=== PATIENT | male | born 1985 | race Caucasian/White ===

== ENCOUNTER 2018-11-19 11:33 | Outpatient (CLI) | payer MEDICARE, MEDICAID, SELFPAY ==
--- NOTE | 2018-11-19 11:24 | DI.RAD_ITS ---
SYMPTOM/DIAGNOSIS: S/P SURGERY RIGHT HAND: Three views were obtained. There is mildly comminuted, mildly displaced fracture of the head of the second metacarpal. Deformity of the head of the first metacarpal is also noted which is probably old. Deformity of fifth metacarpal, probably old, also noted.
== END 2018-11-19 11:53 ==
PROVIDERS: PCP Nurse Practitioner; Referring Provider Nurse Practitioner; Visit Provider Orthopaedic Surgery
DX: M79.641 Pain in right hand (principal); S62.310A Displaced fracture of base of second metacarpal bone, right hand, initial encounter for closed fracture; Z87.81 Personal history of (healed) traumatic fracture; M21.941 Unspecified acquired deformity of hand, right hand; W22.8XXA Striking against or struck by other objects, initial encounter
CPT/HCPCS: 99203; 99214; 73130

== ENCOUNTER 2019-09-29 18:31 | Observation (INO) | payer MEDICARE, MEDICAID, SELFPAY ==
[2019-09-29 18:49] VITALS: BP 149/104; PULSE 117; RESP 16; TEMP 36.7; O2SAT 97
--- NOTE | 2019-09-29 18:56 | ED.GENADUL_ITS ---
Discharge Plan Disposition Patient Disposition: [facility] INPATIENT Condition: Stable Discharge Details Chief Complaint: PsychEval Clinical Impression: Suicidal ideation, Narcotic abuse Admit Date/Time: 09/30/19 00:06 Admit Provider: Bob Roberto Attending Provider: Bob Roberto Primary Care Provider: Elder Castanon ED Provider: Sabino Patel Discharge Data Discharge Date/Time-TO BE ENTERED AT DEPARTURE: 09/30/19 00:35 Medical Decision Making <Parisa Alston DO - Last Filed: 09/29/19 20:04> 1855 -- 34-year-old male with a history of anxiety, depression, bipolar disorder, previous suicide attempts presents for suicidal ideation with a plan to jump in front of a semitruck or overdose on his medications today. Patient appears in no acute distress. His heart rate is tachycardic. He appears nontoxic. No acute findings on exam. Screening labs ordered. Mental health examined at bedside and agree that patient likely would benefit from inpatient psychiatric hospitalization. Patient is voluntary. Plan is to reach out to local facilities for transfer. As availability of admitted beds are low, will hold in the ED until awaiting further information from mental health. 1999 -- Case endorsed to Dr. Patel to follow-up with mental health. If no inpatient psychiatric beds available tonight, and beds on the floor here continue to remain tight, will hold in the ED awaiting psychiatric placement. <Sabino Patel MD - Last Filed: 09/30/19 00:41> Patient signed out to me. He is here for voluntary psychiatric admission. He should be going to [place] tomorrow. COVID swab has been obtained. Labs are unremarkable. Patient has been cooperative here. Case discussed with hospitalist. [facility]. Patient accepted for psychiatric hold pending placement [place] tomorrow. Lab Data Lab results reviewed: Yes I reviewed the patient's lab results. HPI <DO Yuly Fitzpatrick Last Filed: 09/29/19 20:04> General Mode of arrival: ambulatory . Date/Time Provider Initiated Documentation: 09/29/19 18:51 . Limitations to Documentation: no limitations . Information obtained by: patient . HPI Narrative: Patient is a 34-year-old male with a history of anxiety, depression, Dygmc-Jetieyjhv-Ezizi treated with ablation, previous suicide attempts who presents for suicidal thoughts and concern for impulsive behavior today. He states he has thoughts of overdosing on his medications or jumping in front of a semitruck. His previous attempts including overdose of his medications and suicide by gyroscope technician. Patient states he stopped taking all of his medications including buspirone, Lexapro and melatonin a few months ago. He states he is still taking his Suboxone. He has been on Suboxone for the past 3 years due to a previous history of narcotic abuse. He states his Suboxone dose was recently increased 3 weeks ago. He denies any acute medical complaint such as fever, cough, chest pain, shortness of breath, abdominal pain. He states he has been eating and sleeping normally. He also st ates he has been snorting and smoking heroin almost daily, last used 2 days ago. He also states he has been drinking occasionally, last use 1 week ago. He denies any auditory or visual hallucinations. He denies any homicidal ideation. Related Data Home Medications Medication Instructions Recorded Confirmed albuterol sulfate [ProAir HFA] 2 puff INHALATION Q4H PRN 12/28/15 09/29/19 buprenorphine-naloxone [Suboxone] 12 mg PO DAILY AM 05/28/17 09/29/19 buspirone 10 mg PO BID 05/28/17 09/29/19 melatonin [Melatin] 3 mg PO HS 05/28/17 09/29/19 Fluticasone/Salmeterol [Advair 1 ea INHALATION BID 05/29/17 09/29/19 250-50 Diskus] acetaminophen [Tylenol] 650 mg PO Q4H PRN PRN tab 05/29/17 09/29/19 ibuprofen 400 mg PO Q6H PRN #60 tab 05/29/17 09/29/19 escitalopram oxalate [Lexapro] mg 09/29/19 Previous Rx's Medication Instructions Recorded acetaminophen [Tylenol] 650 mg PO Q4H PRN PRN tab 05/29/17 ibuprofen 400 mg PO Q6H PRN #60 tab 05/29/17 Allergies Allergy/AdvReac Type Severity Reaction Status Date / Time avocado Allergy Severe Unverified 10/31/17 13:54 General Stated Complaint: PsychEval LAURA: 3 Review of Systems <Parisa Alston DO - Last Filed: 09/29/19 20:04> All systems reviewed & are unremarkable except as noted in HPI and below Constitutional Constitutional: Reports as per HPI, Denies chills and Denies fever(s) Eyes Eyes: Denies blurry vision ENT Ears, Nose, Mouth, and Throat: Denies dizziness, Denies sore throat and Denies throat swelling Cardiovascular Cardiovascular: Denies chest pain and Denies dyspnea Respiratory Respiratory: Denies cough and Denies dyspnea Gastrointestinal Gastrointestinal: Denies abdominal pain, Denies diarrhea and Denies vomiting Genitourinary Genitourinary: Denies hematuria and Denies dysuria Musculoskeletal Musculoskeletal: Denies back pain and Denies numbness Integumentary/Breasts Skin/Breast: Denies lesions and Denies rash Neurologic Neurologic: Denies dizziness, Denies localized weakness and Denies numbness Psychiatric Psychiatric: Reports suicidal ideation Allergic/Immunologic Allergic/Immunologic: Denies throat swelling PFSH <Parisa Alston DO - Last Filed: 09/29/19 20:04> Medical History Anxiety (Chronic) Bipolar affective disorder (Acute) Depression (Chronic) Omgxp-Gidolspnj-Otjup (WPW) pattern (Acute) Surgical History (Updated 09/29/19 @ 19:56 by Parisa Alston DO) History of cardiac radiofrequency ablation (Acute) Social History Smoking/Tobacco Use Status: Current, status unknown Tobacco Type: cigarettes Drug use: Never Substance use type: amphetamines, opiates and methamphetamine Do you feel safe in your relationship?: Yes Exam <Parisa Alston DO - Last Filed: 09/29/19 20:04> Const General: cooperative, healthy appearing and no acute distress [facility] Head: normal to inspection Face and sinus: normal facial exam Eyes General: appearance normal, both eyes and all related structures Pupils: PERRL EOM: EOM intact bilaterally Neck Neck: normal visual inspection and No submandibular swelling Lymphatic: no lymphadenopathy noted Chest Chest: normal inspection of the chest and no tenderness Resp Effort & Inspection: normal respiratory effort and able to speak in complete sentences Auscultation: clear to auscultation bilaterally Cardio Rate: regular rate Rhythm: regular rhythm GI Inspection: normal to inspection Palpation: soft, not firm, not rigid and nontender Auscultation: normal bowel sounds Skin General skin exam: no rashes or lesions noted Neuro General: patient alert, patient awake and patient oriented x3 Cognition: normal cognition Speech: speech normal Motor: muscle tone normal throughout Sensory Exam: no sensory deficits noted Extrem General: normal to inspection, full ROM, capillary refill normal, no calf tenderness bilaterally and no edema Psych Appearance: grossly normal Mental Status: mental status grossly normal Speech and Movement: speech and movement normal Affect: normal affect Course <Parisa Alston DO - Last Filed: 09/29/19 20:04> Vital Signs Vital signs: Vital Signs Temperature 98.1 F 09/29/19 18:49 Pulse 117 H 09/29/19 18:49 Respiratory Rate 16 09/29/19 18:49 Blood Pressure 149/104 H 09/29/19 18:49 Pulse Oximetry 87 L 09/29/19 18:49 Temperature 98.1 F 09/29/19 18:49 Temperature Source Tympanic 09/29/19 18:49 Pulse 117 H 09/29/19 18:49 Respiratory Rate 16 09/29/19 18:49 Blood Pressure 149/104 H 09/29/19 18:49 Pulse Oximetry 87 L 09/29/19 18:49 Oxygen Delivery Method Room Air 09/29/19 18:49 Oxygen Flow Rate 0 09/29/19 18:49 Pain Level 0 09/29/19 18:49 Sign Out <Parisa Alston DO - Last Filed: 09/29/19 20:04> Sign Out Data: Sign Out Comment: Follow-up with mental health regarding placement. If no psychiatric beds available tonight and admitted beds on the floor unavailable, will plan to keep in the ED overnight awaiting psychiatric bed placement. Last updated by Parisa Alston DO at 09/29/19 20:07
--- NOTE | 2019-09-29 19:22 | PDOC.CMSAFED ---
- If Service Date Differs Date of service: 09/29/19 Time of Service: 19:23 Care Management Safety Plan Chief complaint: Arthur is a 34 year old male who resides in [place] with his mother. A review of his medical records disclose a diagnosis of bipolar disorder and a history of substance use. Arthur has struggled with depression and intermittent suicidal ideation for many years and records show he has had multiple psychiatric hospitalizations over the years. Today, Arthur spoke with his PCP on the telephone and reported suicidal thoughts with a plan of jumping under a semi-truck. [facility], and a deputy county counsel subsequently responded to Arthur's home and transported him to the [facility] ED for a mental health evaluation. A conversation with Jael, [facility] screener, reveals Arthur had been clean and sober for a period of time. After having an argument with his mom's boyfriend recently, Arthur relapsed and returned to using Fentanyl. A few days ago, he stopped using the Fentanyl, began experiencing withdrawals, and started Suboxone. The argument with his family member, coupled with a relapse resulted in suicidal ideation. [facility] for a [facility], and [facility] for review. VOLUNTARY FOR INPATIENT PSYCHIATRIC STABILIZATION. Patient is appropriate in all interactions since arriving at [facility]. Patient has demonstrated appropriate coping and communication skills, has articulated his needs and concerns, and is fully engaged during staff interactions. Safety plan has been established with patient and care team to adhere to patient goals, identify restrictions based on behavioral status, address nutrition, and determine allowed personal belongings, tools for hygiene and personal care, determine level of activity, including ambulation, level of supervision, visitors, and determine privileges based on behaviors and level of engagement by patient. SAFETY PLAN: 1. Will remain on suicide precautions and in paper clothes. 2. Will remain in room under direct supervision of one-on-one staff at all times provided by [employer], MANUELA, SPLITTER HAND verifying machine operator. 3. May have paper cups, plates, finger foods, as well as a cardboard spoon with which to eat meals. 4. Follow [facility] Management of the Admitted Behavioral Health Patient policy. 5. Comfort bath system only. 6. No personal belongings. 7. No visitors. 8. Activities: None at this time. If patient is moved to Med/Surg, will be allowed soft tip markers, paper, television, and other activities at nursing discretion. 8. No telephone privileges at this time. 9. Due to VOLUNTARY status, if patient wishes to leave [facility], the [facility] bead worker sewing must be contacted to re-evaluate patient prior to patient exiting the building. Patient is currently voluntarily at [facility] and seeking inpatient admission when a bed becomes available. [facility] Frontline Crown Assembly Machine Set Up Mechanic will continue seeking placement. Please contact the Senior Radiation Protection Technician Education Assistant ([phone]) for any needed changes in the Safety Plan. Safety Plan has been provided to interdepartmental care team.
[2019-09-29 19:36] LABS: Abs Immature Grans 0.03 k/cumm (0.0-0.09); Absolute Basophil Count 0.02 k/cumm (0.0-0.2); Absolute Eosinophil Count 0.02 k/cumm (0.0-0.7); Absolute Lymphocyte Count 3.12 k/cumm (1.2-3.4); Absolute Monocyte Count 0.73 k/cumm (0.11-0.7); Absolute Neutrophil Count 8.25 k/cumm (1.2-6.7); Basophils % 0.2; Eosinophils % 0.2; HCT 46.6 % (40.0-50.0); HGB 16.2 g/dL (13.5-17.5); Immature Grans % 0.2 %; Lymphocytes % 25.6; Mean Corp. HGB Concentration 34.8 g/dL (32.0-36.0); Mean Corpuscular Hemoglobin 30.5 pg (27.0-33.0); Mean Corpuscular Volume 87.8 fL (80-95); Mean Platelet Volume 9.8 fL (8.0-11.0); Neutrophils % 67.8; Platelet Count 357 x1000/uL (130-400); RBC 5.31 m/cumm (4.50-6.00); RBC Distribution Width 11.9 % (11.8-14.1); White Blood Cell Count 12.17 k/cumm (4.4-10.8)
[2019-09-29 19:41] LABS: *AMPHETAMINES SCREEN URINE Negative (Negative); *BARBITURATES SCREEN URINE Negative (Negative); *BENZODIAZEPINES SCREEN URINE Negative (Negative); Cannabinoids THC Negative (Negative); Cocaine Screen,Urine Negative (Negative); METHADONE URINE SCREEN Negative (Negative); OPIATES URINE SCREEN Negative (Negative)
[2019-09-29 19:42] LABS: Tricyclic Antidepressants Negative (Negative)
[2019-09-29 19:50] LABS: ALT 37 U/L (16-63); AST 20 U/L (15-37); Albumin 4.2 g/dL (3.4-5.0); Alkaline Phosphatase 91 U/L (46-116); Anion Gap 8.2 mmol/L (3-11); BUN 8 mg/dL (7-18); Bilirubin, Total 0.4 mg/dL (0.2-1.0); CO2 26.8 mmol/L (21.0-32.0); CREATININE 0.94 mg/dL (0.70-1.30); Calcium 9.3 mg/dL (8.5-10.1); Chloride 105 mmol/L (98-107); Glucose 103 mg/dL (74-106); Potassium 3.6 mmol/L (3.5-5.1); Sodium 140 mmol/L (136-145); Total Protein 7.8 g/dL (6.4-8.2)
--- NOTE | 2019-09-29 20:01 | PDOC.MHCN ---
<Jael Edgra - Last Filed: 09/29/19 20:36> Date of service: 09/29/19 Time of Service: 20:01 Mental Health Crisis Note <Jael Edgar - Last Filed: 09/29/19 20:36> Presenting Issue How did you arrive at the ED and why did you come: Client reported calling his primary care provider reporting SI. The primary care provider in turn called the police who picked client up and brought him to ED. Precipitating Factors Client reports SI for over a week. Client reports that he has been using fentanyl again after stopping for a while. He stopped using fentanyl the other day and began to have withdrawals and began suboxone again. Client reported that he has a plan to jump under a semi truck if he leaves the hospital. Client has a history of suicide attempts, overdose numerous times and suicide by police. Client reports numerous hospitalizations in the past. Disposition BEHAVIOR: Clients behavior was unremarkable, but did continuously fidgit with his hair EYE CONTACT: normal eye contact MOOD: client appeared anxious AFFECT: Normal affect APPETITE: reported a normal appetite SLEEP(trouble falling/staying asleep: No problems reported Plan This clinician has called all hospitals for admission with some potential availability. All necessary paperwork will be faxed. The attending physician Dr. Alston is in agreement that this client requires a higher level of care due to SI and plan. This clinician spoke with care management about the plan.
[2019-09-29 20:25] LABS: ETHANOL BLOOD < 3.0 mg/dL (<3)
[2019-09-29] MEDS: Nicotine 21 MG/24 HR PATCH TD (21:01)
[2019-09-29] MEDS: diphenhydrAMINE 25 MG CAP PO (21:01)
--- NOTE | 2019-09-29 23:59 | W.PM.HP.N ---
Date of service: 09/29/19 Time of Service: 23:59 Assessment and Plan Assessment and plan (1) Suicidal ideation: Status: Acute Assessment and plan: Suicidal ideation. Await transfer to facility. Precautions pending transfer. No specific treatment at present. Otherwise will continue his usual suboxone. History of Present Illness History of Present Illness Chief Complaint: suicidal Narrative: 34 male with h/o multiple psychiatric dxx, prior suicide attempts, here with suicidal ideation. Does not specify any precipitant, but notable off meds x months. Medically cleared, agrees to admission pending bed [facility]. Review of Systems All systems reviewed & are unremarkable except as noted in HPI and below PFSH Medical History Anxiety (Chronic) Bipolar affective disorder (Acute) Depression (Chronic) Oaldz-Hbajxkrap-Gzhlh (WPW) pattern (Acute) Surgical History (Updated 09/29/19 @ 19:56 by Parisa Alston DO) History of cardiac radiofrequency ablation (Acute) Social History Smoking/Tobacco Use Status: Current, status unknown Tobacco Type: cigarettes Drug use: Never Substance use type: amphetamines, opiates and methamphetamine Do you feel safe in your relationship?: Yes Meds Home Medications and Allergies Home Medications Medication Instructions Recorded Confirmed Type albuterol sulfate [ProAir HFA] 2 puff INHALATION Q4H PRN 12/28/15 09/29/19 History buprenorphine-naloxone [Suboxone] 12 mg PO DAILY AM 05/28/17 09/29/19 History buspirone 10 mg PO BID 05/28/17 09/29/19 History melatonin [Melatin] 3 mg PO HS 05/28/17 09/29/19 History Fluticasone/Salmeterol [Advair 1 ea INHALATION BID 05/29/17 09/29/19 History 250-50 Diskus] acetaminophen [Tylenol] 650 mg PO Q4H PRN PRN tab 05/29/17 09/29/19 Rx ibuprofen 400 mg PO Q6H PRN #60 tab 05/29/17 09/29/19 Rx escitalopram oxalate [Lexapro] mg 09/29/19 History Allergies Allergy/AdvReac Type Severity Reaction Status Date / Time avocado Allergy Severe Unverified 10/31/17 13:54 Exam Narrative Exam Narrative: 149/104, 117, 16, 36.7, 97% RA. Resting quietly. HRERENT atyraumatic, pupils 5 mm; neck supple; lungs clear; heart tachy/regular; abdomen soft and N; extremities w/o edema; neuro pleasant, ox3, non-focal Results Labs Result diagrams: 09/29/19 19:30 09/29/19 19:30 Labs: Laboratory Results - last 24 hr 09/29/19 09/29/19 09/29/19 18:40 19:30 19:30 WBC 12.17 H RBC 5.31 Hgb 16.2 Hct 46.6 MCV 87.8 MCH 30.5 MCHC 34.8 RDW 11.9 Plt Count 357 MPV 9.8 Immature Gran % 0.2 Neutrophils % 67.8 Lymphocytes % 25.6 Monocytes % 6.0 Eosinophils % 0.2 Basophils % 0.2 Absolute Neutrophils 8.25 H Absolute Lymphocytes 3.12 Absolute Monocytes 0.73 H Absolute Eosinophils 0.02 Absolute Basophils 0.02 Sodium 140 Potassium 3.6 Chloride 105 Carbon Dioxide 26.8 Anion Gap 8.2 BUN 8 Creatinine 0.94 Estimated GFR/1.73 m2 >= 60.00 Glucose 103 Calcium 9.3 Total Bilirubin 0.4 AST 20 ALT 37 Alkaline Phosphatase 91 Total Protein 7.8 Albumin 4.2 Urine Opiates Screen Negative Urine Methadone Screen Negative Ur Barbiturates Screen Negative Ur Tricyclics Screen Negative Ur Amphetamines Screen Negative U Benzodiazepines Scrn Negative Urine Cocaine Screen Negative Ur THC Screen Negative Ethyl Alcohol < 3.0 Last Vital Signs Temp 36.7 C 09/29/19 18:49 Pulse 117 H 09/29/19 18:49 Resp 16 09/29/19 18:49 BP 149/104 H 09/29/19 18:49 Pulse Ox 97 09/29/19 18:49 COVID-19 Screening In the past 14 days, have you traveled outside of [place] or [place]?: NO Had IN PERSON contact w/suspected or confirmed C-19 person: No
[2019-09-30 00:31] VITALS: BP 125/83; PULSE 80; RESP 16; TEMP 36.4; O2SAT 98
[2019-09-30 07:31] VITALS: BP 121/83; PULSE 69; RESP 15; TEMP 36.1; O2SAT 99
[2019-09-30] MEDS: Buprenorphine/Naloxone 12 mg/3 mg FILM 1 EACH SL (08:45)
[2019-09-30] MEDS: diazePAM 5 MG TAB PO (10:25)
--- NOTE | 2019-09-30 10:35 | NUR.NOTE ---
Nursing Note: [facility] called requesting the labs, ED MD note, H&P be faxed to their facility. This was done and attention to Bernie. Shaila Puga.
[2019-09-30 12:52] LABS: COVID-19 RT-PCR UVMMC Result Negative (Negative)
--- NOTE | 2019-09-30 14:02 | DSE_ITS ---
Date of service: 09/30/19 Time of Service: 14:02 DS: Diagnosis Discharge Diagnosis (1) Suicidal ideation: Status: Acute Discharge Plan Disposition Patient Disposition: [facility] Condition: Stable Discharge Details Chief Complaint: PsychEval Clinical Impression: Suicidal ideation, Narcotic abuse Reason For Visit: SUICIDAL Admit Date/Time: 09/30/19 00:06 Admit Provider: Bob Roberto Attending Provider: Bob Roberto Primary Care Provider: Elder Castanon ED Provider: Sabino Patel [facility] Course Hospital Course: This is a 34-year-old male with a history of anxiety, depression, Sytcu-Rjklrjwma-Mqexp treated with ablation, previous suicide attempts who presented to the ED for suicidal thoughts and concern for impulsive behavior. He reported he had thoughts of overdosing on his medications or jumping in front of a semitruck. His previous attempts including overdose of his medications and suicide by news copy editor. Patient states he stopped taking all of his medications including buspirone, Lexapro and melatonin a few months ago. He states he is still taking his Suboxone. He has been on Suboxone for the past 3 years due to a previous history of narcotic abuse. He states his Suboxone dose was recently increased 3 weeks ago. He denies any acute medical complaint such as fever, cough, chest pain, shortness of breath, abdominal pain. He states he has been eating and sleeping normally. Medically he was cleared and bed was obtained at [facility] but transfer pending covid testing so was referred here for observation while awaiting results. He also admits he has been snorting and smoking heroin almost daily, last used 2 days ago. He also states he has been drinking occasionally, last use 1 week ago. He denies any auditory or visual hallucinations. He denies any homicidal ideation. overnight he rested comfortably, no behavioral issues. His covid returned as negative. He will be transported by [facility]. case and discharge plan discussed with Dr Morel who is in agreement. Home Meds and New Rx's Prescriptions: Continued albuterol sulfate [ProAir HFA] 200 PUFF HFA aerosol inhaler 2 puff Inhalation Q4H PRNRF: 0 buspirone 5 MG tablet 10 mg PO BID RF: 0 melatonin [Melatin] 3 MG tablet 3 mg PO HS RF: 0 buprenorphine-naloxone [Suboxone] 1 EACH film 12 mg PO DAILY AM RF: 0 Fluticasone/Salmeterol [Advair 250-50 Diskus] 1 EACH Blst.W.Dev 1 ea Inhalation BID RF: 0 acetaminophen [Tylenol] 325 MG tablet 650 mg PO Q4H PRN PRNRF: 0 ibuprofen 200 MG tablet 400 mg PO Q6H PRN (Reason: pain) Qty: 60 RF: 0 escitalopram oxalate [Lexapro] 10 mg Tablet RF: 0 Discharge Instructions Instructions: Polysubstance Abuse (ED), Suicide Prevention (DC) Referrals: Elder Castanon [Primary Care Provider] - (on discharge from inpatient psychiatric facility) Activity:: Activity as Tolerated Equipment/Supplies:: Blood Glucose Monitor Diet:: As Tolerated Discharge Orders Discharge Orders: Discharge Order (Routine); Ordered 09/30/19 Ordered By: Dolly Fregoso DS: Summary Status at Discharge Functional status at discharge: independent ambulation Overall status at discharge: patient is progressing back to baseline Mental Status: mental status grossly normal Speech and Movement: speech and movement normal Mood: congruent mood Affect: normal affect Exam Const General: cooperative, healthy appearing, comfortable, no acute distress and well developed Nutritional Appearance: average body habitus HENMT Head: normal to inspection, normocephalic and atraumatic Mouth: oral mucosae normal Resp Effort & Inspection: normal respiratory effort Auscultation: clear to auscultation bilaterally Cardio Rate: regular rate Rhythm: regular rhythm GI Inspection: normal to inspection Palpation: soft Auscultation: normal bowel sounds Skin General skin exam: other (multiple tattoos) Neuro General: patient alert, patient awake and patient oriented x3 Extrem General: normal to inspection and full ROM Psych Mental Status: mental status grossly normal Speech and Movement: speech and movement normal Mood: congruent mood Affect: normal affect DS: Data Vitals/I&O Vitals and I&O: Vital Signs Temperature 36.1 C L 09/30/19 07:31 Temperature Source Tympanic 09/30/19 07:31 Pulse 69 09/30/19 07:31 Pulse Rhythm Regular 09/30/19 07:31 Respiratory Rate 15 09/30/19 07:31 Respiratory Effort 09/30/19 07:31 Respiratory Depth Normal 09/30/19 07:31 Respiratory Pattern Normal 09/30/19 07:31 Blood Pressure 121/83 09/30/19 07:31 Pulse Oximetry 99 09/30/19 07:31 Oxygen Delivery Method Room Air 09/30/19 07:31 Oxygen Flow Rate 0 09/30/19 07:31 Pain Level 0 09/30/19 07:31 Intake & Output 09/29/19 09/30/19 09/30/19 23:59 11:59 23:59 Intake Total 480 / 720 240 / 720 Balance 480 / 720 240 / 720 Weight 90.718 kg 90.718 kg Intake: Oral 480 / 720 240 / 720 Other: Urine Appearance Clear Voiding Methods Toilet Data Completed and Pending Labs on day of discharge: Labs from last 24 hours 09/29/19 09/29/19 09/29/19 21:17 19:30 19:30 WBC 12.17 H RBC 5.31 Hgb 16.2 Hct 46.6 MCV 87.8 MCH 30.5 MCHC 34.8 RDW 11.9 Plt Count 357 MPV 9.8 Immature Gran % 0.2 Neutrophils % 67.8 Lymphocytes % 25.6 Monocytes % 6.0 Eosinophils % 0.2 Basophils % 0.2 Absolute Neutrophils 8.25 H Absolute Lymphocytes 3.12 Absolute Monocytes 0.73 H Absolute Eosinophils 0.02 Absolute Basophils 0.02 Sodium 140 Potassium 3.6 Chloride 105 Carbon Dioxide 26.8 Anion Gap 8.2 BUN 8 Creatinine 0.94 Estimated GFR/1.73 m2 >= 60.00 Glucose 103 Calcium 9.3 Total Bilirubin 0.4 AST 20 ALT 37 Alkaline Phosphatase 91 Total Protein 7.8 Albumin 4.2 Urine Opiates Screen Urine Methadone Screen Ur Barbiturates Screen Ur Tricyclics Screen Ur Amphetamines Screen U Benzodiazepines Scrn Urine Cocaine Screen Ur THC Screen Ethyl Alcohol < 3.0 COVID-19 PCR Negative Nasopharyn COVID-19 PCR Not Applicable Ref Test Perform Site [facility] 09/29/19 18:40 WBC RBC Hgb Hct MCV MCH MCHC RDW Plt Count MPV Immature Gran % Neutrophils % Lymphocytes % Monocytes % Eosinophils % Basophils % Absolute Neutrophils Absolute Lymphocytes Absolute Monocytes Absolute Eosinophils Absolute Basophils Sodium Potassium Chloride Carbon Dioxide Anion Gap BUN Creatinine Estimated GFR/1.73 m2 Glucose Calcium Total Bilirubin AST ALT Alkaline Phosphatase Total Protein Albumin Urine Opiates Screen Negative Urine Methadone Screen Negative Ur Barbiturates Screen Negative Ur Tricyclics Screen Negative Ur Amphetamines Screen Negative U Benzodiazepines Scrn Negative Urine Cocaine Screen Negative Ur THC Screen Negative Ethyl Alcohol COVID-19 PCR Nasopharyn COVID-19 PCR Ref Test Perform Site [facility] Medical History Anxiety (Chronic) Bipolar affective disorder (Acute) Depression (Chronic) Bmmfo-Ymhikshie-Xwrzf (WPW) pattern (Acute) Surgical History (Updated 09/29/19 @ 19:56 by Parisa Alston DO) History of cardiac radiofrequency ablation (Acute) Social History Smoking/Tobacco Use Status: Current, status unknown Tobacco Type: cigarettes Drug use: Never Substance use type: amphetamines, opiates and methamphetamine Do you feel safe in your relationship?: Yes
--- NOTE | 2019-09-30 14:35 | CMSP_ITS ---
- If Service Date Differs Date of service: 09/30/19 Time of Service: 14:35 Care Management Safety Plan Arthur is a 34 year old male admitted for suicidal ideation. He reports today that he has been struggling with suicidal ideation for many years. He reported that he has been in [facility], [facility] He stated that he felt that [facility] was helpful to him in the past, and he is agreeable to placement there at this time. Per RN Dirt Contractor, his Covid test was negative, which was a requirement from [place] admissions. CM spoke with Beryl at [facility], who stated that as soon as the Covid results were received, they would initiate a RN to RN handoff as a bed is available for Arthur. CM will coordinate transport via [employer] once a time is identified. CM will continue to follow and support discharge planning considerations. VOLUNTARY FOR INPATIENT PSYCHIATRIC STABILIZATION. Patient is appropriate in all interactions since arriving at [facility]. Patient has demonstrated appropriate coping and communication skills, has articulated his needs and concerns, and is fully engaged during staff interactions. Safety plan has been established with patient and care team to adhere to patient goals, identify restrictions based on behavioral status, address nutrition, and determine allowed personal belongings, tools for hygiene and personal care, determine level of activity, including ambulation, level of supervision, visitors, and determine privileges based on behaviors and level of engagement by patient. SAFETY PLAN: 1. Will remain on suicide precautions and in paper clothes. 2. Will remain in room under direct supervision of one-on-one staff at all times provided by [employer], DIGITAL ACCOUNT COORDINATOR, TRACK TEMPLATE MAKER absorber operator. 3. May have paper cups, plates, finger foods, as well as a cardboard spoon with which to eat meals. 4. Follow [facility] Management of the Admitted Behavioral Health Patient policy. 5. Shower permitted with supervision, at the discretion of staff. 6. No personal belongings. 7. No visitors. 8. Activities: He will be allowed soft tip markers, paper, television, kaur for music, and other activities at nursing discretion. 8. No telephone privileges at this time. 9. Due to VOLUNTARY status, if patient wishes to leave [facility], the [facility] personnel worker must be contacted to re-evaluate patient prior to patient exiting the building. Patient is currently voluntarily at [facility] and seeking inpatient admission when a bed becomes available. [facility] Frontline Bag Presser will continue seeking placement. Please contact the Laser Printing Operator Medical Language Specialist ([phone]) for any needed changes in the Safety Plan. Safety Plan has been provided to i erdepartmental care team.
--- NOTE | 2019-09-30 16:26 | CMPROGNOTE_ITS ---
- If Service Date Differs Date of service: 09/30/19 Time of Service: 16:27 Care Management Progress Note S/O: Arthur is a 34 year old male admitted for suicidal ideation. He reports today that he has been struggling with suicidal ideation for many years. He reported that he has been in psychiatric stabilization many times, including [facility]. He stated that [facility] past, and he is agreeable to placement there at this time. Per RN Electric Motor Repair Supervisor, his Covid test was negative, which was a requirement from [place] admissions. CM spoke with Beryl at [facility], who stated that as soon as the Covid results were received, they would initiate a RN to RN handoff as a bed is available for Arthur. CM will coordinate transport via [employer] once a time is identified. CM will continue to follow and support discharge planning considerations. A: Arthur is a 34 year old male admitted to [facility] on 09/30/19 for suicidal ideation. P: Arthur will be transferred to [facility] for psychiatric stabilization. He will be transported by [employer], coordinated by CM. [place] would like him to arrive by 7pm. He is voluntary and was agreeable to go to [facility].
--- NOTE | 2019-10-01 10:02 | PDOC.MHCN ---
Date of service: 09/30/19 Time of Service: 13:40 Mental Health Crisis Note Presenting Issue How did you arrive at the ED and why did you come: Clt was already at [facility] ER awaiting for voluntary placement. Precipitating Factors Clt has been having SI. The clt has a hx of serious drug abuse. Clt admitted during initial assessment that he had been taking fentanyl. Disposition BEHAVIOR: Clt was reported that he was cooperative EYE CONTACT: Good MOOD: Better AFFECT: Anxious APPETITE: N/A SLEEP(trouble falling/staying asleep: N/A Plan Clt went to [facility] as a voluntary placement later in the afternoon. Signature Clinician's Name/Title: Stanford Schroeder MS [facility]
== END 2019-09-30 16:36 | disposition short-term general hospital (02) ==
LOC: ER 09-30 00:18 → MS 09-30 00:32
PROVIDERS: Physician Assistant; Admitting Provider General Practice; Emergency Provider Emergency Medicine; PCP Nurse Practitioner; Visit Provider General Practice
DX: R45.851 Suicidal ideations (principal); Z11.59 Encounter for screening for other viral diseases; F11.10 Opioid abuse, uncomplicated; Z91.5 Personal history of self-harm; Z79.899 Other long term (current) drug therapy; F31.9 Bipolar disorder, unspecified; F15.10 Other stimulant abuse, uncomplicated; I45.6 Pre-excitation syndrome; F41.9 Anxiety disorder, unspecified
CPT/HCPCS: 36415; 80053; 80307; 99217; 99221; 99285; U0003; 80320; 85025; 99218; 99284; G0378